=== PATIENT | male | born 1960 | race Two or more races ===

== ENCOUNTER 2018-03-04 01:56 | Emergency (ER) | payer SELFPAY ==
[2018-03-04] MEDS ORDERED: DIPH/PERTUSS(ACELL)/TETANUS VAC/PF 0.5 ML SYR (>=10YO) IM ONE (02:11)
[2018-03-04] MEDS ORDERED: LIDOCAINE 1% INJ-PF (10 MG/ML) 30 ML SDV INJ ONE (02:12)
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
--- NOTE | 2018-03-04 03:09 | RADIOLOGY REPORT (SQ) ---
CLINICAL HISTORY: trauma; fall COMPARISON: None. 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 FINDINGS: There is no acute fracture. Alignment is anatomic. Disc spaces are maintained. Vertebral body heights are preserved. Soft tissues are unremarkable. IMPRESSION: No acute fracture or subluxation.
[2018-03-04] MEDS ORDERED: CEPHALEXIN 500 MG CAPSULE PO ONE (03:33)
[2018-03-04 04:00] VITALS: BP 151/81
[2018-03-05 08:38] LABS: HEPATITIS A AB IGM Negative (Negative); HEPATITIS B CORE AB IGM Negative (Negative); HEPATITS B SURFACE ANTIGEN Negative (Negative)
[2018-03-05 10:31] LABS: HEPATITIS C VIRUS ANTIBODY <0.1 s/co ratio (0.0-0.9)
== END 2018-03-04 04:01 | disposition home or self-care (01) ==
LOC: ER 01:56
DX: S01.511A Laceration without foreign body of lip, initial encounter (principal); S09.90XA Unspecified injury of head, initial encounter; Y04.0XXA Assault by unarmed brawl or fight, initial encounter; Y92.89 Other specified places as the place of occurrence of the external cause; F17.200 Nicotine dependence, unspecified, uncomplicated; Z23 Encounter for immunization
CPT/HCPCS: 99284; 90471; 36415; 86701; 80074; 70450; 72125; 90715; 12011; J3490